=== PATIENT | female | born 1995 | race American Indian/Alaskan Native ===

== ENCOUNTER 2017-03-31 16:41 | Emergency (ER) | payer MEDICAID ==
[2017-03-31 17:23] LABS: Eosinophils % (Auto) 0.9 % (0.0-4.3); Hematocrit 36.4 % (30.3-42.9); Hemoglobin 12.5 gm/dl (10.1-14.3); Mean Corpuscular HGB Conc 34 % (30-34); Mean Corpuscular Hemoglobin 30 pg (28-32); Mean Corpuscular Volume 87 fl (79-97); Platelet Count 335 K/mm3 (140-440); Red Blood Count 4.19 M/mm3 (3.65-5.03); Red Cell Distribution Width 13.7 % (13.2-15.2); White Blood Count 7.8 K/mm3 (4.5-11.0)
[2017-03-31 17:35] LABS: Bilirubin,Urine NEG (Negative); Blood,Urine SM (Negative); Ketones,Urine NEG (Negative); Leukocyte Esterase,Urine NEG (Negative); Mucus,Urine FEW /HPF; Nitrite,Urine NEG (Negative); Protein,Urine <15 mg/dL mg/dL (Negative); Urobilinogen,Urine < 2.0 mg/dL (<2.0); WBC,Urine < 1.0 /HPF (0.0-6.0)
[2017-03-31 17:49] LABS: Alanine Aminotransferase 9 units/L (7-56); Albumin/Globulin Ratio 1.3 %; Alkaline Phosphatase 64 units/L (35-129); Anion Gap 14 mmol/L; BUN/Creatinine Ratio 15; Blood Urea Nitrogen 9 mg/dL (7-17); Carbon Dioxide 27 mmol/L (22-30); Chloride 102.5 mmol/L (98-107); Glucose 87 mg/dL (65-100); Potassium 3.9 mmol/L (3.6-5.0); Sodium 140 mmol/L (137-145); Total Protein 7.2 g/dL (6.3-8.2)
--- NOTE | 2017-03-31 19:09 | Emergency Department Report ---
ED Dizziness HPI - General Chief Complaint: Dizziness Stated Complaint: SOB/DIZZINESS Time Seen by Provider: 03/31/17 17:58 Source: patient Mode of arrival: Ambulatory Limitations: No Limitations - History of Present Illness Initial Comments: 22 F past medical history obesity presents for complaint of 2 episodes of dizziness earlier this week. On exam patient is awake alert and oriented 3 not in acute distress resting calmly on examination bed. Denies fevers chills abdominal pain chest pain palpitations shortness of breath cough nausea vomiting increased urinary frequency rash or any paresthesias in the upper or lower extremities or face. Patient is awake alert and oriented 3 fully lucid and conversant. Patient is requesting a test as she states her last menstrual period was on 02/25/17 and she is concerned that she may be . Patient states that she felt dizzy and nauseous earlier this week which is why she is concerned about possible . Patient denies any other symptoms during my clinical interview. Denies alcohol or drug use. Patient is visibly ambulatory without assistance. Stated that episode of dizziness was brief lasting a few seconds and was more of a lightheadedness than a sensation of vertigo. No associated diaphoresis palpitations chest pain or shortness of breath. No association with changes in position. MD Complaint: dizziness Onset/Timin -: week(s) Description: lightheadedness History of Same: No History of Trauma: No Severity: mild Worsens With: nothing Associated Symptoms: denies other symptoms - Related Data Allergies Allergy/AdvReac Type Severity Reaction Status Date / Time Penicillins Allergy Swelling Verified 03/31/17 17:07 ED Review of Systems ROS: Stated complaint: SOB/DIZZINESS Other details as noted in HPI Constitutional: denies: chills, fever Eyes: denies: eye pain, eye discharge, vision change ENT: denies: ear pain, throat pain Respiratory: denies: cough, shortness of breath, wheezing Cardiovascular: denies: chest pain, palpitations Endocrine: no symptoms reported Gastrointestinal: denies: abdominal pain, nausea, diarrhea Genitourinary: denies: urgency, dysuria, discharge Musculoskeletal: denies: back pain, joint swelling, arthralgia Skin: denies: rash, lesions Neurological: other (2 episodes of dizziness this week as per pt, lasted a few seconds). denies: headache, weakness, paresthesias Psychiatric: denies: anxiety, depression Hematological/Lymphatic: denies: easy bleeding, easy bruising ED Past Medical Hx - Past Medical History Previous Medical History?: Yes Additional medical history: Foreign body in throat - Surgical History Past Surgical History?: Yes Additional Surgical History: D&C due to a miscarriage, Endoscopy - Social History Smoking Status: Never Smoker Substance Use Type: None ED Physical Exam - General Limitations: No Limitations General appearance: alert, in no apparent distress - Head Head exam: Present: atraumatic, normocephalic - Eye Eye exam: Present: normal appearance, PERRL, EOMI - ENT ENT exam: Present: mucous membranes moist - Neck Neck exam: Present: normal inspection - Respiratory Respiratory exam: Present: normal lung sounds bilaterally. Absent: respiratory distress - Cardiovascular Cardiovascular Exam: Present: regular rate, normal rhythm. Absent: systolic murmur, diastolic murmur, rubs, gallop - GI/Abdominal GI/Abdominal exam: Present: soft, normal bowel sounds - Extremities Exam Extremities exam: Present: normal inspection - Back Exam Back exam: Present: normal inspection - Neurological Exam Neurological exam: Present: alert, oriented X3, CN II-XII intact - Expanded Neurological Exam Expanded Patient oriented to: Present: person, place, time Cranial nerves: EOM's Intact: Normal, Facial Sensation: Normal Cerebellar function: Finger to Nose: Normal, Heel to Lance: Normal, Romberg: Normal Sensory exam: Upper Extremity Light Touch: Normal, Lower Extremity Light Touch: Normal Motor strength exam: RUE: 5, LUE: 5, RLE: 5, LLE: 5 DTR: bicep (R): 3+, bicep (L): 3+, tricep (R): 3+, tricep (L): 3+, knee (R): 3+ , knee (L): 3+, ankle (R): 3+, ankle (L): 3+ Best Eye Response (Steve): (4) open spontaneously Best Motor Response (Steve): (6) obeys commands Best Verbal Response (Mobile): (5) oriented Mobile Total: 15 - Psychiatric Psychiatric exam: Present: normal affect, normal mood - Skin Skin exam: Present: warm, dry, intact, normal color. Absent: rash ED Course Vital Signs 03/31/17 03/31/17 03/31/17 17:02 20:43 20:44 Temperature 97.6 F 97.8 F Pulse Rate 93 H 84 Respiratory 16 20 20 Rate Blood Pressure 114/68 Blood Pressure 115/63 [Right] O2 Sat by Pulse 100 99 100 Oximetry ED Medical Decision Making - Lab Data Result diagrams: 03/31/17 17:11 03/31/17 17:00 - Medical Decision Making A/P: Dizziness, concern for / test 1-hCG level <2, lab work unremarkable. Patient is asymptomatic upon interview and before discharge 2-EKG normal sinus rhythm, labs within normal limits, CBC within normal limits, urinalysis within normal limits, clinical exam within normal limits no neurological deficits strength 5 out of 5 all extremities. Patient denies dizziness or headache upon interview 3-follow up with primary care doctor 4- Cranial nerves 2, 3, 4, 5, 6, 7, 8,10, 11, 12 intact on clinical exam, patient is fully lucid awake alert and oriented 3 conversant. Denies any upper or lower extremity paresthesias and has 5/5 strength in bilateral upper and lower extremities on clinical exam. Independently ambulatory upon discharge. I advised the patient to return to the ED for any facial paresthesias upper or lower extremity paresthesias or any chest pain shortness of breath nausea vomiting or palpitations associated with prolonged episodes of dizziness. Patient stated she understood my instructions. Critical care attestation.: If time is entered above; I have spent that time in minutes in the direct care of this critically ill patient, excluding procedure time. ED Disposition Clinical Impression: test negative Disposition: - TO HOME OR SELFCARE Is pt being admited?: No Does the pt Need Aspirin: No Condition: Stable Referrals: [facility] [Outside] - 3-5 Days [facility] [Outside] - 3-5 Days NELIA HARRIS MD [Staff Physician] - 3-5 Days Forms: Work/School Release Form(ED) Time of Disposition: 20:58
[2017-03-31 20:44] VITALS: BP 115/63
== END 2017-03-31 21:27 | disposition home or self-care (01) ==
LOC: ED 16:41
DX: R42 Dizziness and giddiness (principal); Z32.02 Encounter for pregnancy test, result negative; Z88.0 Allergy status to penicillin
CPT/HCPCS: 36415; 80053; 81001; 82550; 84702; 85025; 93005; 93010; 99283

== ENCOUNTER 2017-04-28 14:05 | Emergency (ER) | payer MEDICAID ==
[2017-04-28 14:24] VITALS: BP 125/70
[2017-04-28 15:37] LABS: Basophils % (Auto) 0.8 % (0.0-1.8); Eosinophils % (Auto) 1.3 % (0.0-4.3); Hematocrit 37.6 % (30.3-42.9); Hemoglobin 12.8 gm/dl (10.1-14.3); Mean Corpuscular HGB Conc 34 % (30-34); Mean Corpuscular Hemoglobin 30 pg (28-32); Mean Corpuscular Volume 88 fl (79-97); Platelet Count 338 K/mm3 (140-440); Red Blood Count 4.27 M/mm3 (3.65-5.03); Red Cell Distribution Width 13.4 % (13.2-15.2); White Blood Count 7.5 K/mm3 (4.5-11.0)
[2017-04-28 16:00] LABS: Anion Gap 16 mmol/L; BUN/Creatinine Ratio 16; Blood Urea Nitrogen 8 mg/dL (7-17); Carbon Dioxide 25 mmol/L (22-30); Chloride 100.1 mmol/L (98-107); Glucose 89 mg/dL (65-100); Potassium 3.8 mmol/L (3.6-5.0); Sodium 137 mmol/L (137-145)
--- NOTE | 2017-04-28 16:07 | XRay Report ---
FINAL REPORT PROCEDURE: XR CHEST ROUTINE 2V TECHNIQUE: Two views of the chest are obtained HISTORY: chest pain COMPARISON: No prior studies are available for comparison. FINDINGS: The heart is normal in size. There is no focal infiltrate, pneumothorax or pleural effusion. IMPRESSION: No abnormalities are seen.
[2017-04-28 16:09] LABS: Bacteria,Urine 1+ /HPF (Negative); Bilirubin,Urine NEG (Negative); Blood,Urine SM (Negative); Ketones,Urine NEG (Negative); Leukocyte Esterase,Urine NEG (Negative); Mucus,Urine FEW /HPF; Nitrite,Urine NEG (Negative); Protein,Urine <15 mg/dL mg/dL (Negative); Urobilinogen,Urine < 2.0 mg/dL (<2.0)
== END 2017-04-28 20:45 | disposition left against medical advice (07) ==
LOC: ED 14:05
DX: J02.9 Acute pharyngitis, unspecified (principal); R50.9 Fever, unspecified; H92.03 Otalgia, bilateral; Z53.21 Procedure and treatment not carried out due to patient leaving prior to being seen by health care provider
CPT/HCPCS: 36415; 71020; 80048; 81001; 81025; 84484; 85025; 87116; 87400; 87430; 93005; 93010

== ENCOUNTER 2017-05-12 13:31 | Emergency (ER) | payer MEDICAID ==
[2017-05-12 15:05] VITALS: BP 102/61
--- NOTE | 2017-05-12 15:35 | Emergency Department Report ---
Minor Respiratory - HPI Chief Complaint: Earache Stated Complaint: EAR/TOOTH/HEAD ACHE/FEVER Time Seen by Provider: 05/12/17 15:35 Duration: 5 Days Pain Location: Ear, Other (dental. 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; missing work no) Severity: Unable to Determine (playing on phone until i came in and then moaned) Minor Respiratory: Yes Ear Pain (r), No Rhinorrhea, No Sore Throat, No Able to Tolerate Fluids, No Cough, No Sick Contacts, No Hemoptysis, No Chest Pain, No Shortness of Breath, No Fever Other History: r lower rear molar dental pain ED Review of Systems ROS: Stated complaint: EAR/TOOTH/HEAD ACHE/FEVER Other details as noted in HPI Comment: All other systems reviewed and negative Eyes: eye pain ENT: dental pain ED Past Medical Hx - Past Medical History Hx Asthma: Yes Additional medical history: Foreign body in throat - Surgical History Additional Surgical History: D&C due to a miscarriage, Endoscopy - Social History Smoking Status: Never Smoker Substance Use Type: None - Medications Home Medications: Home Medications Medication Instructions Recorded Confirmed Last Taken Type Clindamycin [Clindamycin CAP] 150 mg PO Q6HR #40 capsule 05/12/17 Unknown Rx Naproxen [Naprosyn] 500 mg PO BID PRN #20 tablet 05/12/17 Unknown Rx Minor Respiratory Exam - Exam General: Vital signs noted. No distress. Alert and acting appropriately. R LOWER REAR MOLAR A/C MISSED DMD APPNT HEENT: Yes Moist Mucous Membranes, No Pharyngeal Erythema, No Pharyngeal Exudates, No Rhinorrhea, No Conjuctival Injection, No Frontal Tenderness, No Maxillary Tenderness Ear: Neither TM Bulge, Neither TM Erythema, Neither EAC Pain, Neither EAC Discharge Neck: Yes Adenopathy, No Supple Lungs: Yes Good Air Exchange, No Wheezes, No Ronchi, No Stridor, No Cough, No Labored Respirations, No Retractions, No Use of Accessory Muscles, No Other Abnormal Lung Sounds Heart: Yes Regular, No Murmur Abdomen: Yes Normal Bowel Sounds, No Tenderness, No Peritoneal Signs Skin: No Rash, No Edema Neurologic: Alert and oriented, no deficits. Musculoskeletal: Unremarkable. ED Course Vital Signs 05/12/17 14:58 Temperature 98.5 F Pulse Rate 84 Respiratory 16 Rate Blood Pressure 102/61 O2 Sat by Pulse 99 Oximetry ED Medical Decision Making - Medical Decision Making see note - Differential Diagnosis dental disease Critical care attestation.: If time is entered above; I have spent that time in minutes in the direct care of this critically ill patient, excluding procedure time. ED Disposition Clinical Impression: Dental caries Disposition: DC- TO HOME OR SELFCARE Is pt being admited?: No Does the pt Need Aspirin: No Condition: Stable Instructions: Dental Caries (ED) Additional Instructions: DMD [facility] MED[facility] ORDERED TODAY Referrals: PRIMARY CARE, [Primary Care Provider] - 3-5 Days Time of Disposition: 15:42
[2017-05-12] MEDS ORDERED: TORADOL IM ONE (15:40)
== END 2017-05-12 16:42 | disposition home or self-care (01) ==
LOC: ED 13:31
DX: K02.9 Dental caries, unspecified (principal); J45.909 Unspecified asthma, uncomplicated; Z88.0 Allergy status to penicillin
CPT/HCPCS: 96372; 99282; J1885

== ENCOUNTER 2017-09-19 16:58 | Emergency (ER) | payer MEDICAID ==
[2017-09-19 17:39] LABS: Mucus,Urine FEW /HPF
[2017-09-19 17:43] LABS: Bilirubin,Urine NEG (Negative); Blood,Urine NEG (Negative); Color,Urine Yellow (Yellow); Protein,Urine <15 mg/dL mg/dL (Negative); Urobilinogen,Urine < 2.0 mg/dL (<2.0); WBC,Urine < 1.0 /HPF (0.0-6.0)
[2017-09-19 17:44] LABS: HCG Qualitative,Urine Positive (Negative)
[2017-09-19] MEDS ORDERED: NACL 0.9% 1000 ML 1,000 ML IV ONE (19:54)
[2017-09-19] MEDS ORDERED: REGLAN IV ONE (19:54)
--- NOTE | 2017-09-19 20:04 | Emergency Department Report ---
ED HPI - General Chief complaint: Abdominal Pain Stated complaint: CHEST PAIN/NAUSEA/LIGHTHEADED Time Seen by Provider: 09/19/17 19:54 Source: patient Mode of arrival: Ambulatory Limitations: No Limitations - History of Present Illness Initial comments: This is a 22-year-old female nontoxic, well nourished in appearance, no acute signs of distress presents to the ED with c/o of nausea, vomiting, abdominal pain 2 days. Patient stated this morning she woke up with slight chest discomfort but stated this has sat up. Patient denies any vaginal bleeding or vaginal discharge. Patient denies any urinary symptoms. Patient states she is 8 weeks . Patient describes abdominal pain as cramping in the pelvic bilateral region. Patient denies any recent travels, no carotid bruits hospital stays. Patient denies any calf pain or calf tenderness. Patient denies any shortness of breath, fever, chills, nausea, vomiting, headache, stiff neck, numbness, tingling, back pain. Patient states allergies to penicillin with past medical history of asthma. MD Complaint: abdominal pain, other (nausea with vomiting) -: days(s) (1) Location: pelvis Radiation: none Severity: mild Severity scale (0 -10): 3 Quality: cramping Consistency: constant Improves with: none Worsens with: none Associated symptoms: abdominal pain. denies: nausea/vomiting, vaginal bleeding , vaginal discharge, dysuria, headache, vision changes, malaise, dysparuenia, rash, seizure, shortness of breath, syncope, weakness - Related Data Previous Rx's Medication Instructions Recorded Last Taken Type Clindamycin [Clindamycin CAP] 150 mg PO Q6HR #40 capsule 05/12/17 Unknown Rx Naproxen [Naprosyn] 500 mg PO BID PRN #20 tablet 05/12/17 Unknown Rx Metoclopramide [Reglan] 10 mg PO BID PRN #30 tab 09/20/17 Unknown Rx Allergies Allergy/AdvReac Type Severity Reaction Status Date / Time Penicillins Allergy Swelling Verified 03/31/17 17:07 ED Review of Systems ROS: Stated complaint: CHEST PAIN/NAUSEA/LIGHTHEADED Other details as noted in HPI Constitutional: denies: chills, fever Eyes: denies: eye pain, eye discharge, vision change ENT: denies: ear pain, throat pain Respiratory: denies: cough, shortness of breath, wheezing Cardiovascular: denies: chest pain, palpitations Endocrine: no symptoms reported Gastrointestinal: abdominal pain, nausea, vomiting. denies: diarrhea Genitourinary: denies: urgency, dysuria, discharge Musculoskeletal: denies: back pain, joint swelling, arthralgia Skin: denies: rash, lesions Neurological: denies: headache, weakness, paresthesias Psychiatric: denies: anxiety, depression Hematological/Lymphatic: denies: easy bleeding, easy bruising ED Past Medical Hx - Past Medical History Hx Asthma: Yes Additional medical history: Foreign body in throat - Surgical History Past Surgical History?: Yes Additional Surgical History: D&C due to a miscarriage, Endoscopy - Social History Smoking Status: Never Smoker Substance Use Type: None - Medications Home Medications: Home Medications Medication Instructions Recorded Confirmed Last Taken Type Clindamycin [Clindamycin CAP] 150 mg PO Q6HR #40 capsule 05/12/17 Unknown Rx Naproxen [Naprosyn] 500 mg PO BID PRN #20 tablet 05/12/17 Unknown Rx Metoclopramide [Reglan] 10 mg PO BID PRN #30 tab 09/20/17 Unknown Rx ED Physical Exam - General Limitations: No Limitations General appearance: alert, in no apparent distress - Head Head exam: Present: atraumatic, normocephalic - Eye Eye exam: Present: normal appearance Pupils: Present: normal accommodation - ENT ENT exam: Present: normal exam, mucous membranes moist - Neck Neck exam: Present: normal inspection, full ROM. Absent: tenderness, meningismus - Respiratory Respiratory exam: Present: normal lung sounds bilaterally. Absent: respiratory distress, wheezes, rales, rhonchi, stridor, chest wall tenderness, accessory muscle use, decreased breath sounds, prolonged expiratory - Cardiovascular Cardiovascular Exam: Present: regular rate, normal rhythm, normal heart sounds. Absent: bradycardia, tachycardia, irregular rhythm, systolic murmur, diastolic murmur, rubs, gallop - GI/Abdominal GI/Abdominal exam: Present: soft, tenderness (pelvic region), normal bowel sounds. Absent: distended, guarding, rebound, rigid, diminished bowel sounds - Expanded GI/Abdominal Exam Expanded GI/Abdominal exam: Absent: psoas sign, obturator sign, heel tap sign, Ozuna's sign, Rovsing's sign, tenderness at Mcburney's Point, ascites - Rectal Rectal exam: Present: deferred - Extremities Exam Extremities exam: Present: normal inspection, full ROM, normal capillary refill. Absent: calf tenderness - Back Exam Back exam: Present: normal inspection, full ROM - Neurological Exam Neurological exam: Present: alert, oriented X3, normal gait - Psychiatric Psychiatric exam: Present: normal affect, normal mood - Skin Skin exam: Present: warm, dry, intact, normal color. Absent: rash ED Course Vital Signs 09/19/17 17:00 Temperature 97.6 F Pulse Rate 79 Respiratory 16 Rate Blood Pressure 115/78 O2 Sat by Pulse 97 Oximetry - Reevaluation(s) Reevaluation #1: 09/19/17 19:58 Patient is speaking in full sentences with no signs of distress noted. ED Medical Decision Making - Lab Data Result diagrams: 09/19/17 19:57 09/19/17 19:57 - Medical Decision Making This is a 22-year-old female who presents with nausea and vomiting and abdominal pain. Patient is stable was examined by me. Labs obtained within normal limits. US OB obtained and dictated by the radiologist. Patient is notified of the US report with no questions noted by the patient. Patient is a 1 L normal saline and Reglan which nausea vomiting has subsided. Patient tolerated a by mouth challenge apple juices well with no vomiting. Patient is discharged with Reglan. Patient was referred to follow up with EAR SPECIALIST in 3-5 days or if symptoms worsen to return to the emergency room as was possible. There is not any abdominal pain or tenderness. No abdominal distention. Negative Ozuna's and McBurney point. At time of discharge, the patient does not seem toxic or ill in appearance. No acute signs of distress noted. Patient agrees to discharge treatment plan of care. No further questions noted by the patient. Critical care attestation.: If time is entered above; I have spent that time in minutes in the direct care of this critically ill patient, excluding procedure time. ED Disposition Clinical Impression: Qualifiers: Weeks of gestation: 8 weeks Qualified Code(s): Z3A.08 - 8 weeks gestation of Nausea & vomiting Qualifiers: Vomiting type: unspecified Vomiting Intractability: unspecified Qualified Code( s): R11.2 - Nausea with vomiting, unspecified Disposition: DC-01 TO HOME OR SELFCARE Is pt being admited?: No Does the pt Need Aspirin: No Condition: Stable Additional Instructions: Follow-up with a EAR SPECIALIST doctor in 3-5 days or if symptoms worsen and continue return to emergency room as soon as possible. Prescriptions: Metoclopramide [Reglan] 10 mg PO BID PRN #30 tab PRN Reason: Nausea Referrals: PRIMARY CARE, [Primary Care Provider] - 3-5 Days FRANCO ROE MD [Staff Physician] - 3-5 Days [facility] [Outside] - 3-5 Days [facility] [Outside] - 3-5 Days Forms: Work/School Release Form(ED)
[2017-09-19 20:12] LABS: Basophils # (Auto) 0.1 K/mm3 (0.0-0.1); Basophils % (Auto) 0.7 % (0.0-1.8); Eosinophils # (Auto) 0.1 K/mm3 (0.0-0.4); Eosinophils % (Auto) 1.2 % (0.0-4.3); Hematocrit 38.4 % (30.3-42.9); Hemoglobin 12.9 gm/dl (10.1-14.3); Lymphocytes # (Auto) 3.6 K/mm3 (1.2-5.4); Lymphocytes % (Auto) 34.9 % (13.4-35.0); Mean Corpuscular HGB Conc 34 % (30-34); Mean Corpuscular Hemoglobin 30 pg (28-32); Mean Corpuscular Volume 89 fl (79-97); Monocytes # (Auto) 0.9 K/mm3 (0.0-0.8); Monocytes % (Auto) 8.5 % (0.0-7.3); Platelet Count 322 K/mm3 (140-440); Red Blood Count 4.32 M/mm3 (3.65-5.03); Red Cell Distribution Width 13.8 % (13.2-15.2)
[2017-09-19 20:22] LABS: BUN/Creatinine Ratio 16; Blood Urea Nitrogen 8 mg/dL (7-17); Calcium 8.9 mg/dL (8.4-10.2); Hemolysis Index 90
--- NOTE | 2017-09-20 00:12 | Ultrasound Report ---
FINAL REPORT EXAM: US OB TRANSVAGINAL HISTORY: Abdominal pain TECHNIQUE: Transabdominal and transvaginal sonographic evaluation was performed of the female pelvis with and without color Doppler imaging. PRIORS: None. FINDINGS: A single, intrauterine is noted. Yolk sac and pole are identified. Probable left ovarian follicle. There is no significant free intraperitoneal fluid collection. Measurements: Beta HCG-55,215 [place]-rump length measures 17.1 mm, estimated age by ultrasound criteria 8 week 1 day heart rate 161 beats per minute Uterus measures 10.7 x 6.4 x 7.8 cm Right ovary: 2.9 x 1.5 x 1.9 cm Left ovary: 4.2 x 2.3 x 2.9 cm IMPRESSION: Single, viable intrauterine is present without evidence of complication. Estimated age by ultrasound criteria 8 weeks 1 day. Follow-up anatomy scan recommended.
--- NOTE | 2017-09-20 00:14 | Ultrasound Report ---
FINAL REPORT EXAM: US OB < = 14 WEEKS FETUS HISTORY: abd pain TECHNIQUE: Transabdominal sonographic evaluation was performed of the female pelvis with and without color Doppler imaging. PRIORS: None. FINDINGS: A single, intrauterine is noted. Yolk sac and pole are identified. Probable left ovarian follicle. There is no significant free intraperitoneal fluid collection. Measurements: Beta HCG-55,215 [place]-rump length measures 17.1 mm, estimated age by ultrasound criteria 8 week 1 day heart rate 161 beats per minute Uterus measures 10.7 x 6.4 x 7.8 cm Right ovary: 2.9 x 1.5 x 1.9 cm Left ovary: 4.2 x 2.3 x 2.9 cm IMPRESSION: Single, viable intrauterine estimated age by ultrasound criteria 8 weeks 1 day. There is no current sonographic evidence of complication. Follow-up anatomy scan recommended.
[2017-09-20 00:44] VITALS: BP 113/74
== END 2017-09-20 00:44 | disposition home or self-care (01) ==
LOC: ED 16:58
DX: O26.891 Other specified pregnancy related conditions, first trimester (principal); R11.2 Nausea with vomiting, unspecified; R10.9 Unspecified abdominal pain; Z3A.08 8 weeks gestation of pregnancy; Z88.0 Allergy status to penicillin
CPT/HCPCS: 36415; 76801; 76817; 80048; 81001; 81025; 84702; 85025; 86850; 86900; 86901; 96361; 96374; 99284; J2765; J7030